=== PATIENT | male | born 1990 | race Caucasian/White ===

== ENCOUNTER 2023-08-11 11:09 | Emergency (ER) | payer OTHER, BC, SELFPAY ==
[2023-08-11 11:37] VITALS: BP 127/77; PULSE 68; RESP 17; TEMP 36.6; O2SAT 98; BMI 28.7
--- NOTE | 2023-08-11 11:38 | ED.EYEPROB ---
HPI - Eye Problem General Chief complaint: Eye Problems Stated complaint: Injury right eye Time Seen by Provider: 08/11/23 12:25 Source: patient Mode of arrival: ambulatory Limitations: no limitations History of Present Illness HPI Narrative: 33-year-old male with no significant pmhx presents to the ED today with right eye pain/redness s/p stepping on a bent metal pipe at work prior to arrival. Patient states that the remaining pipe swung forward and hit him directly in the right eye. Admits majority of the impact was to his upper right eyelid however his right eye has been red and irritated. Denies foreign body sensation but states he feels a scratch in his eye. Does not wear corrective lenses. Denies facial pain, headache, dizziness, blurred vision, double vision, vision loss, nausea or vomiting. Related Data Previous Rx's Medication Instructions Recorded erythromycin 5 mg/gram (0.5 %) eye 1 appl ophthalmic (eye) 6XD #3.5 08/11/23 ointment grams Allergies Allergy/AdvReac Type Severity Reaction Status Date / Time From AUGMENTIN AdvReac Unknown DIARRHEA Uncoded 08/11/23 11:36 From Augmentin AdvReac Unknown DIARRHEA Uncoded 08/11/23 11:36 Review of Systems Review of Systems: Constitutional: No fever, chills, fatigue, night sweats, weight changes ENT/Mouth: No ear pain, hearing loss, nasal congestion, sinus pain, rhinorrhea, sore throat Eyes: +eye pain, No swelling, +redness, No vision changes, discharge Cardio: No chest pain, palpitations, HUNTER, orthopnea, peripheral edema Pulm: No SOB, cough, sputum, wheezing, dyspnea, hemoptysis GI: No nausea, vomiting, hematemesis, abdominal pain, diarrhea, constipation, hematochezia, melena MSK: No back pain, neck pain, joint pain, myalgias Skin: No lesions, rashes Neuro: No weakness, numbness, paresthesias, LOC, dizziness, headache All other systems reviewed and are negative. [facility] Past Medical History Attestation statement: The following information was validated with the patient. Source: old records reviewed and nursing notes reviewed Social History Social History Advance Directives: No Physical Exam Vital Signs: Vital Signs: Last Vital Signs Temp 98 F 08/11/23 11:37 Pulse 88 08/11/23 14:28 Resp 16 08/11/23 14:28 BP 127/77 08/11/23 11:37 Pulse Ox 97 08/11/23 14:28 O2 Del Method Room Air 08/11/23 14:28 BMI result Body Mass Index 28.7 Vital signs stable Const: General: cooperative, healthy appearing, comfortable, no acute distress, alert and awake Orientation/consciousness: patient oriented x3 Limitations: no limitations HEENT: Head: Yes normal to inspection, Yes No palpable skull fracture present, Yes normocephalic, Yes atraumatic, No Feliz's sign, No raccoon eyes and No periorbital ecchymosis Ears: hearing grossly normal bilaterally General nose exam: Normal external nose present and Normal septum present Face and sinus: Yes normal facial exam, No crepitus and No ecchymosis Eyes: Other: + right conjunctival injection. Slight ecchymosis noted to the medial upper right eyelid without edema. PERRLA. EOMs intact without entrapment bilaterally. No visible FB or abraision. No periorbital edema. + on fluorescein stain there is no uptake to indicate FB or abrasion. Structures intact. Negative Eleanor sign. Right upper eyelid everted without noted FB. Direct Ophthalmoscopy: no photophobia Neck: Neck: Yes normal visual inspection and Yes full ROM Resp: Effort & Inspection: normal respiratory effort Auscultation: clear to auscultation bilaterally Cardio: Rate: regular rate Rhythm: regular rhythm Neuro: General: patient oriented x3, gait normal, moves all extremities and no focal motor deficits Cranial nerves: Yes Bilaterally intact EOM present Gait exam (Neuro): Normal gait present Pupils: Normal pupillary reactivity/response: bilateral Extrem: General: Yes normal to inspection and Yes full ROM Course Course Course Narrative: RME: 33-year-old male with a significant past medical history presenting to the ED complaining of right eye injury s/p accidentally stepping on bent metal pipe at work [employer] and remaining pipe swinging forward and hitting patient directly in R eye. VA, tetracaine, staining ordered Full HPI, ROS and PE to be performed by primary ED provider. Reevaluation(s) Reevaluation #1: Visual acuity 20/20 b/l eyes. No fb or conreal abrasion noted on fluorescein stain and lid eversion. Likely irritation of the eye secondary to trauma. I do not suspect corneal abrasion, corneal ulcer, corneal FB or retained FB, blow out fracture, muscle intrapment, or globe rupture. His eye pain has improved with tetracine drops. will send erythromycin ointment to patient's pharmacy to conver for infection. patient informed of plan and is in agreement. Patient has remained stable throughout ED visit today. Discussed strict return precautions. All questions answered at this time. Patient is agreeable with disposition and stable for discharge. Medications Administered Discontinued Medications Generic Name Dose Route Start Last Admin Trade Name Freq PRN Reason Stop Dose Admin Fluorescein Sodium 1 strip 08/11/23 13:32 08/11/23 13:38 Fluorescein Sodium Strip EYE-RIGHT 08/11/23 13:33 1 strip ONCE ONE Administration Tetracaine HCl 1 drop 08/11/23 13:32 08/11/23 13:41 Tetracaine Hcl/Pf 0.5% Oph Susie 4 Ml Drops EYE-RIGHT 08/11/23 13:33 Not Given ONCE ONE Tetracaine HCl 1 drop 08/11/23 13:39 08/11/23 13:40 Tetracaine Hcl 0.5% Oph Susie 5 Ml Bottle EYE-RIGHT 08/11/23 13:40 1 drop ONCE ONE Administration Medical Decision Making Medical Decision Making MDM Narrative: 33-year-old male with no significant pmhx presents to the ED today with right eye pain/redness s/p stepping on a bent metal pipe at work prior to arrival. VSS. Patient is nontoxic appearing and in NAD. On exam there is right conjunctival injection. Slight ecchymosis noted to the medial upper right eyelid without edema. PERRLA. EOMs intact without entrapment bilaterally. No visible FB or abrasion. No periorbital edema. On fluorescein stain there is no uptake to indicate FB or abrasion. Structures intact. Negative Eleanor sign. Right upper eyelid everted without noted FB. Clinical concern for corneal abrasion, corneal ulcer, corneal FB, conjunctivitis. Unlikely blow out fracture, globe rupture, muscle entrapment. Visual acuity, fluoresein stain and tetracaine ordered in triage. Differential Diagnosis Differential Diagnoses: The differential diagnosis associated with the presentation includes As above. Admission/Observation Not indicated. Independent Historian Clinical information obtained from an independent historian. History obtained from or confirmed by: Spouse External Record Review External record reviewed: Inpatient record Prescription Management I considered prescription management with: Antibiotic Social Determinants Patient?s care significantly limited by Social Determinants of Health including: Other Social Determinant of Health Procedures FB Removal Eye Time Out performed: Yes Location: eye (R) Topical anesthetic used: tetracaine Evidence of corneal penetration: No Technique: irrigation Procedure performed under: direct visualization with magnification Post-procedure medication: ophthalmic antibiotic Patient tolerated procedure: well Complications: other (no FB found) Critical Care Time Critical Care Time Critical Care Time: No Discharge Plan Discharge Clinical Impression: Conjunctival injection, Eye injury Patient Disposition: Home, Self-Care Instructions: Corneal Abrasion (DC) Additional Instructions: Your right eye did not demonstrate any retained foreign body on examination. Erythromycin is an antibiotic ointment that has been sent to pharmacy. Apply this to your right eye up to 6 times daily for the next 5-7 days. If your vision changes or symptoms worsen or persist, return to the emergency department. 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 You may call them to schedule an appointment. They will not call you. Please follow-up with your PCP. Prescriptions: New erythromycin 5 mg/gram (0.5 %) ointment 1 appl ophthalmic (eye) 6XD Qty: 3.5 0RF Rx Instructions: Place in right eye Stand Alone Forms: Work/School Release Interventions: ED Discharge Assessment Last Done: 08/11/23 15:07 Discharge Date/Time: 08/11/23 15:07
[2023-08-11] MEDS: Fluorescein Sodium STRIP 1 STRIP EYE-RIGHT (13:38)
[2023-08-11 14:28] VITALS: PULSE 88; RESP 16; O2SAT 97
== END 2023-08-11 15:07 | disposition home or self-care (01) ==
PROVIDERS: Emergency Provider Emergency Medicine Emergency Medical Services
DX: T15.91XA Foreign body on external eye, part unspecified, right eye, initial encounter (principal); W44.H0XA Other sharp object unspecified, entering into or through a natural orifice, initial encounter; Y93.9 Activity, unspecified; Y92.9 Unspecified place or not applicable; Y99.0 Civilian activity done for income or pay
CPT/HCPCS: 65220; 99283; 99284